=== PATIENT | female | born 1940 | race American Indian/Alaskan Native ===

== ENCOUNTER 2017-02-22 07:45 | Day surgery (SDC) | payer MEDICARE ==
[2017-02-14 08:17] VITALS: BMI 24.3
[~2017-02-22 07:45] MED LIST: ceFAZolin IV 1 gm in Dextrose 1 GM/50 ML BAG IVPB ONE
[2017-02-22] MEDS ORDERED: HEPARIN-NS 5,000 UNITS/500 ML 5,000 UNIT/500 ML BAG IV ONE (07:48)
[2017-02-22] MEDS ORDERED: Midazolam 2 MG/2 ML VIAL ONE (08:20)
[2017-02-22] MEDS ORDERED: Lidocaine Hydrochloride 5 ML INJ ONE (08:20)
[2017-02-22] MEDS ORDERED: Propofol 10 mg/ml Inj (20 ML) ONE (08:20)
[2017-02-22] MEDS ORDERED: Sodium Chloride 0.9% 500 ML IV ONE (10:40)
--- NOTE | 2017-02-22 15:05 | OP ---
PROCEDURE DATE: 02/22/2017 PREOPERATIVE DIAGNOSIS: Renal failure. POSTOPERATIVE DIAGNOSIS: Renal failure. PROCEDURE CARRIED OUT: Brachiobrachial fistula, left elbow. SURGEON: Nando Quach Jr., MD CYBER FORENSICS ANALYST: Dr. Fountain. ANESTHESIOLOGIST: Mr. Lara; general anesthesia. INDICATIONS: The patient is an older middle-aged woman with renal insufficiency, not yet on dialysis . Preoperative vein mapping did not demonstrate an adequate cephalic vein or really any significant cephalic vein and the basilic vein was relatively small, although in the upper portion of the arm it achieved a decent size. Because of this, we carried out a brachiobrachial fistula at the elbow. The re was excellent flow through the fistula and there was a palpable pulse at the wrist. PROCEDURE: The patient was given general anesthesia and intravenous antibiotics. The vein mapping wa s checked again and then we carried out an incision just above the elbow. We isolated the vein and t he artery and did anastomosis in an end-to-side fashion using loupe magnification and heparin anticoa gulation which was not reversed at the end of the procedure. After completion of the anastomosis, I had thorough checks for hemostasis. We closed this wound with a subcuticular closure and Steri-Strip s. Blood loss was less than 15 mL. OPERATION CARRIED OUT: Brachiobrachial fistula, left elbow. Most likely this will require mobilization in the future. Nando Quach Jr., MD cc:Melina Cobb MD 56 TT: 02/22/2017 10:56:22 darci
[2017-02-22 19:38] VITALS: O2SAT 99
[2017-02-22 19:39] VITALS: BP 135/55; PULSE 52; RESP 15; TEMP 97.6
[2017-02-22 21:25] LABS: CALCIUM 7.7 mg/dl (8.6-10.4); POTASSIUM 4.9 mmol/L (3.6-5.2)
== END 2017-02-22 13:35 | disposition home or self-care (01) ==
LOC: C.SDS 07:45
PROVIDERS: ATTEND Surgery Vascular Surgery
DX: I12.0 Hypertensive chronic kidney disease with stage 5 chronic kidney disease or end stage renal disease (principal); N18.6 End stage renal disease; E11.22 Type 2 diabetes mellitus with diabetic chronic kidney disease
CPT/HCPCS: 36415; 36821; 80048; J2250; J2704; J3010; J7040

== ENCOUNTER 2017-04-19 06:50 | Day surgery (SDC) | payer MEDICARE ==
[2017-02-14 08:15] VITALS: BMI 24.3
[2017-04-19] MEDS: ceFAZolin IV 1 gm in Dextrose 1 GM/50 ML BAG IVPB ONE ×2 (07:50→08:10)
[2017-04-19] MEDS ORDERED: Propofol 10 mg/ml Inj (20 ML) ONE (07:51)
[2017-04-19] MEDS ORDERED: Midazolam 2 MG/2 ML VIAL ONE (07:51)
[2017-04-19] MEDS: HEPARIN-NS 5,000 UNITS/500 ML 5,000 UNIT/500 ML BAG IV ONE ×2 (08:30→10:05)
[2017-04-19] MEDS ORDERED: HYDROmorphone 0.5 mg/0.5 ml ISec IVP PRN (10:36)
[2017-04-19] MEDS ORDERED: Rocuronium 10 mg/ml (5 ml) ONE (10:38)
[2017-04-19] MEDS ORDERED: Sodium Chloride 0.9% 1,000 ML IV SCH (10:45)
[2017-04-19] MEDS ORDERED: Oxycodone/Acetaminophen 5/325 mg Tab PO PRN (10:55)
--- NOTE | 2017-04-19 10:57 | PCM.SURG1 ---
Surgeon's Initial Post Op Note - Surgeon's Notes Surgeon: Dr. Quach Family Practitioner: Dr. Amin PGY3 Type of Anesthesia: General Endo Pre-Operative Diagnosis: ESRD, Left arm AVF Operative Findings: see op report Post-Operative Diagnosis: same Operation Performed: left arm AVF revision/superficialization Specimen/Specimens Removed: none Estimated Blood Loss: EBL {In ML}: 25 Blood Products Given: N/A Drains Used: No Drains Post-Op Condition: Good Date of Surgery/Procedure: 04/19/17 Time of Surgery/Procedure: 10:57
[2017-04-19] MEDS ORDERED: Sodium Chloride 0.9% 500 ML IV ONE (11:55)
[2017-04-19 12:28] VITALS: RESP 18
[2017-04-19 15:28] VITALS: BP 142/52; PULSE 68; TEMP 98; O2SAT 98
--- NOTE | 2017-05-04 22:00 | OP ---
PROCEDURE DATE: 04/19/2017 PREOPERATIVE DIAGNOSIS: Immature fistula, left arm. POSTOPERATIVE DIAGNOSIS: Immature fistula, left arm. PROCEDURE CARRIED OUT: Revision of AV fistula, left arm with basilic vein elevation. SURGEON: Dr. Nando Quach Jr., MD BOARD FILLER: None. ANESTHESIA ADMINISTERED BY: Staff anesthesiologist. INDICATION FOR SURGERY: The patient is a middle-aged woman with renal insufficiency, who has a AV fistula left arm which was created, a basilic vein fistula. This is too deep to be utilized, requires mobilization of the surface. DESCRIPTION OF PROCEDURE: The vein was dissected briefly from the surrounding tissues, it was marked on the skin with ultrasound. An incision was made from the elbow to the axilla and the fistula was mobilized completely. After this has been mobilized, the branches were ligated and divided and eventually, the subcutaneous tissues were closed and the fistula was brought directly beneath the skin. There was excellent flow to the fistula. There was excellent closure of the skin wound. The patient tolerated the procedure well. Blood loss for the procedure was less than 100 mL. The operation carried out was revision of AV fistula, left arm with basilic vein transposition. Nando Quach Jr., MD cc: Melina Cobb MD
== END 2017-04-19 15:15 | disposition home or self-care (01) ==
LOC: C.SDS 06:50
PROVIDERS: ATTEND Surgery Vascular Surgery
DX: T82.898A Other specified complication of vascular prosthetic devices, implants and grafts, initial encounter (principal); N18.6 End stage renal disease
CPT/HCPCS: 36415; 36832; 82948; 84132; J0690; J1644; J2250; J2704; J3010; J7040

== ENCOUNTER 2017-05-18 14:14 | Emergency (ER) | payer MEDICARE ==
[2017-05-18 14:14] VITALS: BMI 24.3
[2017-05-18 14:32] VITALS: TEMP 98.6
[2017-05-18 15:35] VITALS: BP 170/70; PULSE 88; RESP 18; O2SAT 98
--- NOTE | 2017-05-18 18:20 | C.PDOC ---
History Of Present Illness 76 y/o female presents to ED for blood work. Patient carol munguia a mistake on her blood work appointment which is scheduled for Sunday not today. No physical complaints at this time. Time Seen by Provider: 05/18/17 15:12 Chief Complaint (Nursing): Medical Clearance History/Exam Limitations: no limitations Onset/Duration Of Symptoms: Days Current Symptoms Are (Timing): Still Present Past Medical History Reviewed: Historical Data, Nursing Documentation, Vital Signs Vital Signs: Last Vital Signs Temp 98.6 F 05/18/17 15:34 Pulse 88 05/18/17 15:34 Resp 18 05/18/17 15:34 BP 170/70 H 05/18/17 15:34 Pulse Ox 98 05/18/17 18:24 - Medical History PMH: Anemia, Diabetes, HTN, Hypercholesterolemia, Peripheral Edema (FEET), Chronic Kidney Disease, TIA (MAYBE 1999) - [employer] Procedures ANGIOPLASTY OF OTHER NON-CORONARY VESSEL(S) (12/21/14) ATHERECTOMY OF OTHER NON-CORONARY VESSEL(S) (12/21/14) INSEJ [id number] PERIPHERAL NON-CORONARY VES STENT(S) (12/21/14) INSERTION OF ONE VASCULAR STENT (12/21/14) PROCEDURE ON SINGLE VESSEL (12/21/14) PROCEDURE ON VESSEL BIFURCATION (12/21/14) Family History: States: Unknown Family Hx - Social History Hx Tobacco Use: No Hx Alcohol Use: No Hx Substance Use: No - Immunization History Hx Tetanus Toxoid Vaccination: Yes Hx Influenza Vaccination: Yes Hx Pneumococcal Vaccination: Yes Review Of Systems Except As Marked, All Systems Reviewed And Found Negative. Constitutional: Negative for: Fever, Chills Cardiovascular: Negative for: Chest Pain Respiratory: Negative for: Cough, Shortness of Breath Gastrointestinal: Negative for: Nausea, Vomiting, Diarrhea Skin: Negative for: Rash Neurological: Negative for: Weakness, Headache, Dizziness Physical Exam - Physical Exam Appears: Non-toxic, No Acute Distress Skin: Normal Color, Warm, No Rash Head: Atraumatic, Normacephalic Eye(s): bilateral: Normal Inspection Oral Mucosa: Moist Neck: Supple Chest: Symmetrical Cardiovascular: Rhythm Regular Respiratory: Normal Breath Sounds, No Rales, No Rhonchi, No Wheezing Gastrointestinal/Abdominal: Soft, No Tenderness, No Guarding, No Rebound Extremity: Normal ROM, Capillary Refill (<2 seconds) Neurological/Psych: Oriented x3, Normal Speech, Normal Cognition ED Course And Treatment O2 Sat by Pulse Oximetry: 98 (RA) Pulse Ox Interpretation: Normal Medical Decision Making Medical Decision Making: Case discussed with Dr. Oral Cobb and advised to tell patient to follow up with hospital on Sunday. Disposition - Disposition Referrals: Adele Cobb MD [Staff Provider] - Disposition: HOME/ ROUTINE Disposition Time: 15:20 Condition: GOOD Additional Instructions: Thank you for letting us take care of you today. Your provider was Dr. Carlson. The emergency medical care you received today was directed at your acute symptoms. If you were prescribed any medication, please fill it and take as directed. It may take several days for your symptoms to resolve. Return to the Emergency Department if your symptoms worsen, do not improve, or if you have any other problems. Please contact your doctor or call one of the physicians/clinics you have been referred to that are listed on the Patient Visit Information form that is included in your discharge packet. Bring any paperwork you were given at discharge with you along with any medications you are taking to your follow up visit. Our treatment cannot replace ongoing medical care by a primary care provider (PCP) outside of the emergency department. Thank you for allowing the [facility] team to be part of your care today. Follow up on Sunday as scheduled. Forms: [employer] (Greek) - Clinical Impression Clinical Impression: Medical assessment - Scribe Statement The provider has reviewed the documentation as recorded by the Seibezra Santos All medical record entries made by the Scribe were at my direction and personally dictated by me. I have reviewed the chart and agree that the record accurately reflects my personal performance of the history, physical exam, medical decision making, and the department course for this patient. I have also personally directed, reviewed, and agree with the discharge instructions and disposition.
== END 2017-05-18 16:00 | disposition home or self-care (01) ==
LOC: C.ER 14:14
DX: Z00.00 Encounter for general adult medical examination without abnormal findings (principal)

== ENCOUNTER 2017-06-05 11:08 | Inpatient (IN) | payer MEDICARE ==
[2017-06-05 11:09] VITALS: BMI 24.3
--- NOTE | 2017-06-05 12:02 | C.PDOC ---
History Of Present Illness 76 y/o female, with PMHx of diabetes, HTN, chronic kidney disease, is sent to ED by Dr. Pascual Cobb for first time dialysis treatment. Otherwise, pt denies any pain, or any other associated symptoms at this time. Denies taking her chronic meds this morning. No complaints at this time. Time Seen by Provider: 06/05/17 11:16 Chief Complaint (Nursing): Medical Clearance History Per: Patient History/Exam Limitations: no limitations Onset/Duration Of Symptoms: Gradual Current Symptoms Are (Timing): Still Present Severity: None Pain Scale Rating Of: 0 Reports Recently: Treated By A Physician Recent travel outside of the [place]: No Additional History Per: Patient Past Medical History Reviewed: Historical Data, Nursing Documentation, Vital Signs Vital Signs: Last Vital Signs Temp 98.2 F 06/05/17 11:20 Pulse 86 06/05/17 11:20 Resp 18 06/05/17 11:20 BP 183/75 H 06/05/17 11:20 Pulse Ox 100 06/05/17 12:41 - Medical History PMH: Anemia, Diabetes, HTN, Hypercholesterolemia, Peripheral Edema (FEET), Chronic Kidney Disease, TIA (MAYBE 1999) - [employer] Procedures ANGIOPLASTY OF OTHER NON-CORONARY VESSEL(S) (12/21/14) ATHERECTOMY OF OTHER NON-CORONARY VESSEL(S) (12/21/14) INSEJ [id number] PERIPHERAL NON-CORONARY VES STENT(S) (12/21/14) INSERTION OF ONE VASCULAR STENT (12/21/14) PROCEDURE ON SINGLE VESSEL (12/21/14) PROCEDURE ON VESSEL BIFURCATION (12/21/14) Family History: States: Unknown Family Hx - Social History Hx Tobacco Use: No Hx Alcohol Use: No Hx Substance Use: No - Immunization History Hx Tetanus Toxoid Vaccination: Yes Hx Influenza Vaccination: Yes Hx Pneumococcal Vaccination: Yes Review Of Systems Constitutional: Negative for: Fever, Chills Cardiovascular: Negative for: Chest Pain, Palpitations Respiratory: Negative for: Shortness of Breath Gastrointestinal: Negative for: Nausea, Vomiting, Abdominal Pain Musculoskeletal: Negative for: Arm Pain, Back Pain Skin: Negative for: Rash, Bruising Physical Exam - Physical Exam Appears: Non-toxic, No Acute Distress Skin: Normal Color, Warm, Dry, Other ((+) fistula thrill to left upper arm) Head: Atraumatic, Normacephalic Eye(s): bilateral: Other (pale conjunctiva) Oral Mucosa: Moist Cardiovascular: Rhythm Regular, No Murmur Respiratory: Normal Breath Sounds, No Rales, No Rhonchi, No Wheezing Gastrointestinal/Abdominal: Soft, No Tenderness Extremity: Bilateral: Atraumatic, Normal ROM Neurological/Psych: Oriented x3, Normal Speech, Normal Cognition ED Course And Treatment - Laboratory Results Result Diagrams: 06/05/17 12:11 06/05/17 12:11 ECG: Interpreted By Me, Viewed By Me ECG Rhythm: Sinus Rhythm ECG Interpretation: No Acute Changes Interpretation Of ECG: Minimal voltage criteria for LVH. Prolonged QT. Rate From EC (bpm) O2 Sat by Pulse Oximetry: 100 (on RA) Pulse Ox Interpretation: Normal Medical Decision Making Medical Decision Making: Plan: Blood work, UA, EKG, CXR On re-evaluation, pt is resting comfortably, no physical complaints at this time. No acute distress. 1246 pm pt with k of 5.7, no acute ekf changes; per Dr Cobb, will give kayexalate and pt to be dialyzed later. Dr Quach called. Disposition Discussed With Dr.: Adele Cobb Doctor Will See Patient In The: Hospital - Disposition Disposition Time: 12:48 Condition: SERIOUS Forms: [facility] (Albanian) - Clinical Impression Clinical Impression: Renal failure, Hyperkalemia, diminished renal excretion - PA / CASER IN / Resident Statement MD/DO has reviewed & agrees with the documentation as recorded. - Scribe Statement The provider has reviewed the documentation as recorded by the Scribezra Cobb All medical record entries made by the Scribe were at my direction and personally dictated by me. I have reviewed the chart and agree that the record accurately reflects my personal performance of the history, physical exam, medical decision making, and the department course for this patient. I have also personally directed, reviewed, and agree with the discharge instructions and disposition. Decision To Admit - Pt Status Changed To: Hospital Disposition Of: Inpatient - Admit Certification Admit to Inpatient:: After my assessment, the patient will require hospitalization for at least two midnights. This is because of the severity of symptoms shown, intensity of services needed, and/or the medical risk in this patient being treated as an outpatient. - InPatient: Physician Admission Certification: I certify that this patient requires 2 or more midnights of care for the following reason:: for dialysis, eletrolyte abnl - . Bed Request Type: Telemetry Admitting Physician: Adele Cobb Patient Diagnosis: Renal failure, Hyperkalemia, diminished renal excretion
[2017-06-05 12:20] LABS: BASO % 0.8 % (0.0-2.0); EOS # 0.1 K/uL (0.0-0.7); EOS % 2.3 % (0.0-4.0); HEMATOCRIT 25.7 % (34.0-47.0); LYMPH # 1.1 K/uL (1.0-4.3); MEAN CELL VOLUME 79.8 fL (81.0-99.0); MEAN CORPUSCULAR HEMOGLOBIN 26.2 pg (27.0-31.0); MEAN CORPUSCULAR HGB CONC 32.8 g/dL (33.0-37.0); MEAN PLATELET VOLUME 7.8 fL (7.2-11.7); MONO # 0.5 K/uL (0.0-0.8); MONO % 7.7 % (0.0-10.0); RED CELL DISTRIBUTION WIDTH 14.8 % (11.5-14.5); WHITE BLOOD COUNT 6.3 K/uL (4.8-10.8)
[2017-06-05 12:29] LABS: POTASSIUM 5.7 mmol/L (3.6-5.2)
[2017-06-05 12:31] LABS: BILIRUBIN,TOTAL 0.4 mg/dL (0.2-1.3)
[2017-06-05 12:32] LABS: ALB/GLOB RATIO 0.9 (1.0-2.1); CALCIUM 7.7 mg/dl (8.6-10.4); TOTAL PROTEIN 6.8 g/dL (6.3-8.3)
[2017-06-05 12:42] LABS: RBC URINE 7 /hpf (0-3); URINE BACTERIA OCC (<OCC); URINE BILIRUBIN NEGATIVE (NEGATIVE); URINE BLOOD 1+ (NEGATIVE); URINE COLOR Yellow (YELLOW); URINE GLUCOSE (UA) 1+ mg/dL (Normal); URINE KETONE NEGATIVE (NEGATIVE); URINE LEUKOCYTE ESTERASE 1+ Leu/uL (Negative); URINE PROTEIN 3+ mg/dL (NEGATIVE); URINE UROBILINOGEN NORMAL mg/dL (0.2-1.0); WBC URINE 9 /hpf (0-5)
[2017-06-05] MEDS ORDERED: Sod Polystyrene Sulf 15 gm/60 ml Oral Susp PO ONE (12:44)
--- NOTE | 2017-06-05 12:50 | RAD ---
HISTORY: SOB COMPARISON: Chest x-ray performed 02/14/17. TECHNIQUE: Chest, one view. FINDINGS: LUNGS: No focal consolidation. Please note that chest x-ray has limited sensitivity for the detection of pulmonary masses. PLEURA: No significant pleural effusion identified. No definite pneumothorax . CARDIOVASCULAR: Mild cardiomegaly. Atherosclerotic calcifications of the aorta. OSSEOUS STRUCTURES: Degenerative changes of the spine. VISUALIZED UPPER ABDOMEN: Unremarkable. OTHER FINDINGS: None. IMPRESSION: No focal consolidation, significant pleural effusion, or definite pneumothorax identified.
[2017-06-05] MEDS ORDERED: Sod Polystyrene Sulf 15 gm/60 ml Oral Susp ONE (13:10)
--- NOTE | 2017-06-05 16:03 | CP.PCM.HP ---
Past Patient History - Infectious Disease Hx of Infectious Diseases: None - Tetanus Immunizations Tetanus Immunization: Unknown - Past Medical History & Family History Past Medical History?: Yes - Past Social History Smoking Status: Former Smoker - CARDIAC Hx Hypercholesterolemia: Yes Hx Hypertension: Yes Hx Peripheral Edema: Yes (FEET) - PULMONARY Hx Respiratory Disorders: No - NEUROLOGICAL Hx Transient Ischemic Attacks (TIA): Yes (MAYBE 1999) - HEENT Hx HEENT Problems: Yes Hx Cataracts: Yes - RENAL Hx Chronic Kidney Disease: Yes - ENDOCRINE/METABOLIC Hx Endocrine Disorders: Yes Hx Diabetes Mellitus Type 2: Yes - HEMATOLOGICAL/ONCOLOGICAL Hx Anemia: Yes - INTEGUMENTARY Hx Dermatological Problems: No - MUSCULOSKELETAL/RHEUMATOLOGICAL Hx Musculoskeletal Disorders: No Hx Falls: No - GASTROINTESTINAL Hx Gastrointestinal Disorders: No - GENITOURINARY/GYNECOLOGICAL Hx Genitourinary Disorders: No Hx Urinary Tract Infection: Yes - PSYCHIATRIC Hx Substance Use: No - SURGICAL HISTORY Hx Surgeries: Yes Hx Angiogram: Yes Hx Angioplasty: Yes (LEFT LEG STENTING) Hx Cataract Extraction: Yes (Both Eyes) Hx Dilation and Curettage: Yes Hx Herniorrhaphy: Yes (Hernia Surgery) Hx Orthopedic Surgery: Yes (sx of dislocated right shoulder) Hx Tubal Ligation: Yes Hx Vascular Surgery: Yes (left leg stent 12/22/14) Other/Comment: AV Fistula, left arm - ANESTHESIA Hx Anesthesia: Yes Hx Anesthesia Reactions: No Hx Malignant Hyperthermia: No Meds Allergies/Adverse Reactions: Allergies Allergy/AdvReac Type Severity Reaction Status Date / Time No Known Allergies Allergy Verified 06/05/17 11:24 Physical Exam - Constitutional Appears: Well - Head Exam Head Exam: ATRAUMATIC, NORMAL INSPECTION, NORMOCEPHALIC - Eye Exam Eye Exam: EOMI, Normal appearance, PERRL Pupil Exam: NORMAL ACCOMODATION, PERRL - ENT Exam ENT Exam: Mucous Membranes Moist, Normal Exam - Neck Exam Neck exam: Positive for: Normal Inspection - Respiratory Exam Respiratory Exam: Decreased Breath Sounds - Cardiovascular Exam Cardiovascular Exam: REGULAR RHYTHM, +S1, +S2 - GI/Abdominal Exam GI & Abdominal Exam: Diminished Bowel Sounds, Soft - Rectal Exam Rectal Exam: Deferred Results - Vital Signs Recent Vital Signs: Last Vital Signs Temp 98.0 F 06/05/17 14:50 Pulse 72 06/05/17 14:50 Resp 18 06/05/17 14:50 BP 139/70 06/05/17 14:50 Pulse Ox 100 06/05/17 14:50 - Labs Result Diagrams: 06/05/17 12:11 06/05/17 12:11
[2017-06-05] MEDS: (Novolog) Insulin Aspart, Recombinant 100 u/ml 10 ml vial SC SCH ×2 (17:35→21:43)
[2017-06-06] MEDS: (Novolog) Insulin Aspart, Recombinant 100 u/ml 10 ml vial SC SCH ×4 (07:46→21:52)
[2017-06-06] MEDS: Pantoprazole 40 mg EC Tab PO PRN (13:02)
--- NOTE | 2017-06-06 18:14 | CP.PCM.PN ---
Subjective - Date & Time of Evaluation Date of Evaluation: 06/06/17 Time of Evaluation: 10:00 - Subjective Subjective: clinically same Objective - Vital Signs/Intake and Output Vital Signs (last 24 hours): Temp Pulse Resp BP Pulse Ox 98.8 F 85 20 160/60 H 100 06/06/17 15:00 06/06/17 15:00 06/06/17 15:00 06/06/17 15:00 06/06/17 15:00 Intake and Output: 06/06/17 06/06/17 06:59 18:59 Intake Total 840 Balance 840 - Medications Medications: Current Medications Amlodipine Besylate (Norvasc) 10 mg PO DAILY [facility] Last Admin: 06/06/17 13:02 Dose: 10 mg Aspirin (Ecotrin) 81 mg PO DAILY [facility] Last Admin: 06/06/17 13:02 Dose: 81 mg Carvedilol (Coreg) 6.25 mg PO BID [facility] Last Admin: 06/06/17 17:18 Dose: 6.25 mg Clopidogrel Bisulfate (Plavix) 75 mg PO DAILY [facility] Last Admin: 06/06/17 13:02 Dose: 75 mg Heparin Sodium (Porcine) (Heparin) 5,000 units SC Q12 [facility] Last Admin: 06/06/17 10:30 Dose: Not Given Insulin Aspart (Novolog) 0 unit SC ACHS [facility] PRN Reason: Protocol Stop: 06/11/17 23:59 Last Admin: 06/06/17 17:16 Dose: 8 unit Losartan Potassium (Cozaar) 50 mg PO DAILY [facility] Last Admin: 06/06/17 13:01 Dose: 50 mg Pantoprazole Sodium (Protonix Ec Tab) 40 mg PO DAILY PRN PRN Reason: Dyspepsia Last Admin: 06/06/17 13:02 Dose: 40 mg Pentoxifylline (Pentoxil) 400 mg PO BID [facility] Last Admin: 06/06/17 17:17 Dose: 400 mg Rosuvastatin Calcium (Crestor) 10 mg PO HS [facility] Last Admin: 06/05/17 21:44 Dose: 10 mg - Constitutional Appears: Well - Head Exam Head Exam: ATRAUMATIC, NORMAL INSPECTION, NORMOCEPHALIC - Eye Exam Eye Exam: EOMI, Normal appearance, PERRL Pupil Exam: NORMAL ACCOMODATION, PERRL - ENT Exam ENT Exam: Mucous Membranes Moist, Normal Exam - Neck Exam Neck Exam: Full ROM, Normal Inspection. absent: Lymphadenopathy - Respiratory Exam Respiratory Exam: Decreased Breath Sounds - Cardiovascular Exam Cardiovascular Exam: REGULAR RHYTHM, +S1, +S2 - GI/Abdominal Exam GI & Abdominal Exam: Soft, Diminished Bowel Sounds - Rectal Exam Rectal Exam: Deferred
--- NOTE | 2017-06-06 20:27 | CARD ---
APPROVED REPORT EKG Measurement Heart [id number] ID [id number] <Conclusion> Normal sinus rhythm Minimal voltage criteria for LVH, may be normal variant Prolonged QT Abnormal ECG
[2017-06-07] MEDS: (Novolog) Insulin Aspart, Recombinant 100 u/ml 10 ml vial SC SCH ×4 (07:33→21:24)
[2017-06-07 10:31] LABS: BASO # 0.1 K/uL (0.0-0.2); EOS # 0.1 K/uL (0.0-0.7); EOS % 1.5 % (0.0-4.0); HEMATOCRIT 25.3 % (34.0-47.0); LYMPH # 0.9 K/uL (1.0-4.3); LYMPH % 16.9 % (20.0-40.0); MEAN CORPUSCULAR HEMOGLOBIN 26.4 pg (27.0-31.0); MEAN PLATELET VOLUME 7.8 fL (7.2-11.7); MONO # 0.5 K/uL (0.0-0.8); MONO % 8.5 % (0.0-10.0); RED CELL DISTRIBUTION WIDTH 14.3 % (11.5-14.5); WHITE BLOOD COUNT 5.4 K/uL (4.8-10.8)
[2017-06-07 10:39] LABS: POTASSIUM 3.9 mmol/L (3.6-5.2)
--- NOTE | 2017-06-07 16:55 | CP.PCM.PN ---
Objective - Vital Signs/Intake and Output Vital Signs (last 24 hours): Temp Pulse Resp BP Pulse Ox 97.9 F 77 20 153/61 H 100 06/07/17 16:16 06/07/17 16:16 06/07/17 16:16 06/07/17 16:16 06/07/17 16:16 Intake and Output: 06/07/17 06/07/17 06:59 18:59 Intake Total 400 Balance 400 - Medications Medications: Current Medications Amlodipine Besylate (Norvasc) 10 mg PO DAILY [facility] Last Admin: 06/07/17 14:04 Dose: 10 mg Aspirin (Ecotrin) 81 mg PO DAILY [facility] Last Admin: 06/07/17 14:05 Dose: 81 mg Carvedilol (Coreg) 6.25 mg PO BID [facility] Last Admin: 06/07/17 10:30 Dose: Not Given Clopidogrel Bisulfate (Plavix) 75 mg PO DAILY [facility] Last Admin: 06/07/17 14:05 Dose: 75 mg Heparin Sodium (Porcine) (Heparin) 5,000 units SC Q12 [facility] Last Admin: 06/07/17 10:30 Dose: Not Given Insulin Aspart (Novolog) 0 unit SC ACHS [facility] PRN Reason: Protocol Stop: 06/11/17 23:59 Last Admin: 06/07/17 14:04 Dose: 3 unit Losartan Potassium (Cozaar) 50 mg PO DAILY [facility] Last Admin: 06/07/17 14:05 Dose: 50 mg Pantoprazole Sodium (Protonix Ec Tab) 40 mg PO DAILY PRN PRN Reason: Dyspepsia Last Admin: 06/06/17 13:02 Dose: 40 mg Pentoxifylline (Pentoxil) 400 mg PO BID [facility] Last Admin: 06/07/17 10:30 Dose: Not Given Rosuvastatin Calcium (Crestor) 10 mg PO HS [facility] Last Admin: 06/06/17 21:36 Dose: 10 mg - Labs Labs: 06/07/17 10:22 06/07/17 10:22
--- NOTE | 2017-06-07 16:56 | CP.PCM.PN ---
Subjective - Date & Time of Evaluation Date of Evaluation: 06/07/17 Time of Evaluation: 09:20 - Subjective Subjective: clinically same Objective - Vital Signs/Intake and Output Vital Signs (last 24 hours): Temp Pulse Resp BP Pulse Ox 97.9 F 77 20 153/61 H 100 06/07/17 16:16 06/07/17 16:16 06/07/17 16:16 06/07/17 16:16 06/07/17 16:16 Intake and Output: 06/07/17 06/07/17 06:59 18:59 Intake Total 400 Balance 400 - Medications Medications: Current Medications Amlodipine Besylate (Norvasc) 10 mg PO DAILY [facility] Last Admin: 06/07/17 14:04 Dose: 10 mg Aspirin (Ecotrin) 81 mg PO DAILY [facility] Last Admin: 06/07/17 14:05 Dose: 81 mg Carvedilol (Coreg) 6.25 mg PO BID [facility] Last Admin: 06/07/17 10:30 Dose: Not Given Clopidogrel Bisulfate (Plavix) 75 mg PO DAILY [facility] Last Admin: 06/07/17 14:05 Dose: 75 mg Heparin Sodium (Porcine) (Heparin) 5,000 units SC Q12 [facility] Last Admin: 06/07/17 10:30 Dose: Not Given Insulin Aspart (Novolog) 0 unit SC ACHS [facility] PRN Reason: Protocol Stop: 06/11/17 23:59 Last Admin: 06/07/17 14:04 Dose: 3 unit Losartan Potassium (Cozaar) 50 mg PO DAILY [facility] Last Admin: 06/07/17 14:05 Dose: 50 mg Pantoprazole Sodium (Protonix Ec Tab) 40 mg PO DAILY PRN PRN Reason: Dyspepsia Last Admin: 06/06/17 13:02 Dose: 40 mg Pentoxifylline (Pentoxil) 400 mg PO BID [facility] Last Admin: 06/07/17 10:30 Dose: Not Given Rosuvastatin Calcium (Crestor) 10 mg PO HS [facility] Last Admin: 06/06/17 21:36 Dose: 10 mg - Labs Labs: 06/07/17 10:22 06/07/17 10:22 - Constitutional Appears: Well - Head Exam Head Exam: ATRAUMATIC, NORMAL INSPECTION, NORMOCEPHALIC - Eye Exam Eye Exam: EOMI, Normal appearance, PERRL Pupil Exam: NORMAL ACCOMODATION, PERRL - ENT Exam ENT Exam: Mucous Membranes Moist, Normal Exam - Neck Exam Neck Exam: Full ROM, Normal Inspection. absent: Lymphadenopathy - Respiratory Exam Respiratory Exam: Decreased Breath Sounds
--- NOTE | 2017-06-07 17:07 | CP.PCM.PN ---
Subjective - Date & Time of Evaluation Date of Evaluation: 06/07/17 Time of Evaluation: 17:00 - Subjective Subjective: Service for Dr. Pascual Cobb Pt seen and examined at bedside. No acute distress. No events overnight. Pt is feeling fine with no complaints. S/P dialysis today. Awaiting chair placement. No fevers, chills, vomiting, diarrhea, cp, sob. Objective - Vital Signs/Intake and Output Vital Signs (last 24 hours): Temp Pulse Resp BP Pulse Ox 97.9 F 77 20 153/61 H 100 06/07/17 16:16 06/07/17 16:16 06/07/17 16:16 06/07/17 16:16 06/07/17 16:16 Intake and Output: 06/07/17 06/07/17 06:59 18:59 Intake Total 400 Balance 400 - Medications Medications: Current Medications Amlodipine Besylate (Norvasc) 10 mg PO DAILY [facility] Last Admin: 06/07/17 14:04 Dose: 10 mg Aspirin (Ecotrin) 81 mg PO DAILY [facility] Last Admin: 06/07/17 14:05 Dose: 81 mg Carvedilol (Coreg) 6.25 mg PO BID [facility] Last Admin: 06/07/17 10:30 Dose: Not Given Clopidogrel Bisulfate (Plavix) 75 mg PO DAILY [facility] Last Admin: 06/07/17 14:05 Dose: 75 mg Heparin Sodium (Porcine) (Heparin) 5,000 units SC Q12 [facility] Last Admin: 06/07/17 10:30 Dose: Not Given Insulin Aspart (Novolog) 0 unit SC ACHS [facility] PRN Reason: Protocol Stop: 06/11/17 23:59 Last Admin: 06/07/17 14:04 Dose: 3 unit Losartan Potassium (Cozaar) 50 mg PO DAILY [facility] Last Admin: 06/07/17 14:05 Dose: 50 mg Pantoprazole Sodium (Protonix Ec Tab) 40 mg PO DAILY PRN PRN Reason: Dyspepsia Last Admin: 06/06/17 13:02 Dose: 40 mg Pentoxifylline (Pentoxil) 400 mg PO BID [facility] Last Admin: 06/07/17 10:30 Dose: Not Given Rosuvastatin Calcium (Crestor) 10 mg PO HS [facility] Last Admin: 06/06/17 21:36 Dose: 10 mg - Labs Labs: 06/07/17 10:22 06/07/17 10:22 - Constitutional Appears: Non-toxic, No Acute Distress - Head Exam Head Exam: ATRAUMATIC, NORMAL INSPECTION, NORMOCEPHALIC - Eye Exam Eye Exam: EOMI - ENT Exam ENT Exam: Mucous Membranes Moist - Neck Exam Neck Exam: Full ROM, Normal Inspection - Respiratory Exam Respiratory Exam: NORMAL BREATHING PATTERN. absent: Respiratory Distress - Cardiovascular Exam Cardiovascular Exam: REGULAR RHYTHM, +S1, +S2 - GI/Abdominal Exam GI & Abdominal Exam: Soft, Normal Bowel Sounds. absent: Tenderness - Extremities Exam Extremities Exam: Full ROM - Back Exam Back Exam: NORMAL INSPECTION - Neurological Exam Neurological Exam: Alert, Awake, Oriented x3 - Psychiatric Exam Psychiatric exam: Normal Affect, Normal Mood - Skin Skin Exam: Dry, Intact, Normal Color, Warm Assessment and Plan - Assessment and Plan (Free Text) Assessment: This is a 76 yo female with past medical hx ESRD, CKD requiring dialysis, DM, HTN presenting in acute on chronic renal failure 1. CKD/ESRD -norvasc 10 -dialysis as scheduled -awaiting chair placement -pentoxil 400 bid 2. HTN -asa 81 daily -plavix 75 daily -crestor 10 daily -losartan 50 daily -coreg bid 3. hx of DM -ISS -accuchecks 4. GI/DVT ppx -heparin 5000 q 12 sc -protonix daily dw Dr. Cobb.
[2017-06-08] MEDS: (Novolog) Insulin Aspart, Recombinant 100 u/ml 10 ml vial SC SCH ×4 (07:58→22:11)
--- NOTE | 2017-06-08 09:58 | CP.PCM.PN ---
Subjective - Date & Time of Evaluation Date of Evaluation: 06/08/17 Time of Evaluation: 07:25 - Subjective Subjective: PGY2 Resident - Medicine Progress Note Patient seen and examined at bedside. No overnight events per nursing. Patient reports feeling well and has no acute complaints. Dialysis scheduled for tomorrow (Sunday). Awaiting placement for outpatient dialysis. Denies fever, chills, headache, changes in vision, chest pain, palpitations, dyspnea, cough, abdominal pain, nausea/vomiting, diarrhea/constipation, dysuria, urinary frequency, change in urinary stream, or any additional acute complaints. Objective - Vital Signs/Intake and Output Vital Signs (last 24 hours): Temp Pulse Resp BP Pulse Ox 98.3 F 85 20 164/85 H 99 06/08/17 07:15 06/08/17 07:59 06/08/17 07:15 06/08/17 07:15 06/08/17 07:15 Intake and Output: 06/08/17 06/08/17 06:59 18:59 Intake Total 500 Balance 500 - Medications Medications: Current Medications Amlodipine Besylate (Norvasc) 10 mg PO DAILY [facility] Last Admin: 06/08/17 09:27 Dose: 10 mg Aspirin (Ecotrin) 81 mg PO DAILY [facility] Last Admin: 06/08/17 09:27 Dose: 81 mg Carvedilol (Coreg) 6.25 mg PO BID [facility] Last Admin: 06/08/17 09:27 Dose: 6.25 mg Clopidogrel Bisulfate (Plavix) 75 mg PO DAILY [facility] Last Admin: 06/08/17 09:27 Dose: 75 mg Heparin Sodium (Porcine) (Heparin) 5,000 units SC Q12 [facility] Last Admin: 06/08/17 09:34 Dose: Not Given Insulin Aspart (Novolog) 0 unit SC ACHS [facility] PRN Reason: Protocol Stop: 06/11/17 23:59 Last Admin: 06/08/17 07:58 Dose: Not Given Losartan Potassium (Cozaar) 50 mg PO DAILY [facility] Last Admin: 06/08/17 09:34 Dose: Not Given Pantoprazole Sodium (Protonix Ec Tab) 40 mg PO DAILY PRN PRN Reason: Dyspepsia Last Admin: 06/06/17 13:02 Dose: 40 mg Pentoxifylline (Pentoxil) 400 mg PO BID [facility] Last Admin: 06/08/17 09:28 Dose: 400 mg Rosuvastatin Calcium (Crestor) 10 mg PO HS [facility] Last Admin: 06/07/17 21:33 Dose: 10 mg - Labs Labs: 06/07/17 10:22 06/07/17 10:22 - Additional Findings Additional findings: - Constitutional Appears: Non-toxic, No Acute Distress - Head Exam Head Exam: ATRAUMATIC, NORMAL INSPECTION, NORMOCEPHALIC - Eye Exam Eye Exam: EOMI - ENT Exam ENT Exam: Mucous Membranes Moist - Neck Exam Neck Exam: Full ROM, Normal Inspection - Respiratory Exam Respiratory Exam: NORMAL BREATHING PATTERN. absent: Respiratory Distress - Cardiovascular Exam Cardiovascular Exam: REGULAR RHYTHM, +S1, +S2 - GI/Abdominal Exam GI & Abdominal Exam: Soft, Normal Bowel Sounds. absent: Tenderness - Extremities Exam Extremities Exam: Full ROM - Back Exam Back Exam: NORMAL INSPECTION - Neurological Exam Neurological Exam: Alert, Awake, Oriented x3 - Psychiatric Exam Psychiatric exam: Normal Affect, Normal Mood - Skin Skin Exam: Dry, Intact, Normal Color, Warm Assessment and Plan - Assessment and Plan (Free Text) Assessment: This is a 76 yo female with past medical hx ESRD, CKD requiring dialysis, DM, HTN presenting in acute on chronic renal failure 1. CKD/ESRD 06/08: Dialysis scheduled for tomorrow. -norvasc 10 -dialysis as scheduled -awaiting chair placement -pentoxil 400 bid 2. HTN 06/08: BP 149/62, stable. -asa 81 daily -plavix 75 daily -crestor 10 daily -losartan 50 daily -coreg bid 3. Hyperlipidemia -plavix 75 daily -crestor 10 daily 4. hx of DM 06/08: Glucose 323 today. Increased ISS to high dose. -ISS -accuchecks 5. Anemia 06/08: Hgb 8.3, stable. 6. GI/DVT ppx -heparin 5000 q 12 sc -protonix daily -SCDs Case discussed with attending. All medical management as per Dr. Pascual Cobb
[2017-06-08 11:30] LABS: BASO # 0.1 K/uL (0.0-0.2); BASO % 0.9 % (0.0-2.0); EOS # 0.1 K/uL (0.0-0.7); EOS % 2.1 % (0.0-4.0); HEMATOCRIT 25.7 % (34.0-47.0); LYMPH % 15.6 % (20.0-40.0); MEAN CELL VOLUME 80.8 fL (81.0-99.0); MEAN CORPUSCULAR HEMOGLOBIN 26.2 pg (27.0-31.0); MEAN CORPUSCULAR HGB CONC 32.4 g/dL (33.0-37.0); MEAN PLATELET VOLUME 7.9 fL (7.2-11.7); MONO # 0.5 K/uL (0.0-0.8); MONO % 8.7 % (0.0-10.0); RED CELL DISTRIBUTION WIDTH 13.9 % (11.5-14.5); WHITE BLOOD COUNT 6.1 K/uL (4.8-10.8)
--- NOTE | 2017-06-08 11:34 | CP.PCM.PN ---
Subjective - Date & Time of Evaluation Date of Evaluation: 06/08/17 Time of Evaluation: 08:40 - Subjective Subjective: clinically same Objective - Vital Signs/Intake and Output Vital Signs (last 24 hours): Temp Pulse Resp BP Pulse Ox 97.6 F 90 20 149/62 99 06/08/17 10:26 06/08/17 10:26 06/08/17 10:26 06/08/17 10:26 06/08/17 10:26 Intake and Output: 06/08/17 06/08/17 06:59 18:59 Intake Total 500 120 Balance 500 120 - Medications Medications: Current Medications Amlodipine Besylate (Norvasc) 10 mg PO DAILY [facility] Last Admin: 06/08/17 09:27 Dose: 10 mg Aspirin (Ecotrin) 81 mg PO DAILY [facility] Last Admin: 06/08/17 09:27 Dose: 81 mg Carvedilol (Coreg) 6.25 mg PO BID [facility] Last Admin: 06/08/17 09:27 Dose: 6.25 mg Clopidogrel Bisulfate (Plavix) 75 mg PO DAILY [facility] Last Admin: 06/08/17 09:27 Dose: 75 mg Heparin Sodium (Porcine) (Heparin) 5,000 units SC Q12 [facility] Last Admin: 06/08/17 09:34 Dose: Not Given Insulin Aspart (Novolog) 0 unit SC ACHS [facility] PRN Reason: Protocol Stop: 06/11/17 23:59 Last Admin: 06/08/17 07:58 Dose: Not Given Losartan Potassium (Cozaar) 50 mg PO DAILY [facility] Last Admin: 06/08/17 09:34 Dose: Not Given Pantoprazole Sodium (Protonix Ec Tab) 40 mg PO DAILY PRN PRN Reason: Dyspepsia Last Admin: 06/06/17 13:02 Dose: 40 mg Pentoxifylline (Pentoxil) 400 mg PO BID [facility] Last Admin: 06/08/17 09:28 Dose: 400 mg Rosuvastatin Calcium (Crestor) 10 mg PO HS [facility] Last Admin: 06/07/17 21:33 Dose: 10 mg - Labs Labs: 06/08/17 11:17 06/07/17 10:22 - Constitutional Appears: Well - Head Exam Head Exam: ATRAUMATIC, NORMAL INSPECTION, NORMOCEPHALIC - Eye Exam Eye Exam: EOMI, Normal appearance, PERRL Pupil Exam: NORMAL ACCOMODATION, PERRL - ENT Exam ENT Exam: Mucous Membranes Moist, Normal Exam - Neck Exam Neck Exam: Full ROM, Normal Inspection. absent: Lymphadenopathy - Respiratory Exam Respiratory Exam: Decreased Breath Sounds - Cardiovascular Exam Cardiovascular Exam: REGULAR RHYTHM, +S1, +S2 - GI/Abdominal Exam GI & Abdominal Exam: Soft, Diminished Bowel Sounds - Rectal Exam Rectal Exam: Deferred
[2017-06-08 11:57] LABS: POTASSIUM 4.3 mmol/L (3.6-5.2)
[2017-06-08 11:59] LABS: BILIRUBIN,TOTAL 0.4 mg/dL (0.2-1.3); TOTAL PROTEIN 6.6 g/dL (6.3-8.3)
[2017-06-08 12:00] LABS: CALCIUM 7.8 mg/dl (8.6-10.4); MAGNESIUM 1.9 mg/dL (1.6-2.3); PHOSPHOROUS 4.5 mg/dL (2.5-4.5)
[2017-06-09] MEDS: (Novolog) Insulin Aspart, Recombinant 100 u/ml 10 ml vial SC SCH ×4 (08:27→22:34)
[2017-06-09] MEDS ORDERED: Epoetin Alfa 10,000 unit/ml Dialysis IV SCH (12:00)
[2017-06-09] MEDS ORDERED: Paricalcitol 2 mcg/ml Inj IV SCH (12:00)
[2017-06-09] MEDS: Pantoprazole 40 mg EC Tab PO PRN (14:06)
--- NOTE | 2017-06-09 14:16 | CP.PCM.PN ---
Subjective - Date & Time of Evaluation Date of Evaluation: 06/09/17 Time of Evaluation: 09:20 - Subjective Subjective: clinically same Objective - Vital Signs/Intake and Output Vital Signs (last 24 hours): Temp Pulse Resp BP Pulse Ox 97.9 F 82 16 144/63 99 06/09/17 12:30 06/09/17 12:30 06/09/17 12:30 06/09/17 12:30 06/09/17 12:30 - Medications Medications: Current Medications Amlodipine Besylate (Norvasc) 10 mg PO DAILY [facility] Last Admin: 06/09/17 14:09 Dose: 10 mg Aspirin (Ecotrin) 81 mg PO DAILY [facility] Last Admin: 06/09/17 14:06 Dose: 81 mg Carvedilol (Coreg) 6.25 mg PO BID [facility] Last Admin: 06/09/17 14:06 Dose: 6.25 mg Clopidogrel Bisulfate (Plavix) 75 mg PO DAILY [facility] Last Admin: 06/09/17 14:06 Dose: 75 mg Epoetin Gurdeep (Procrit) 10,000 unit IV TTS [facility] Stop: 06/14/17 10:01 Last Admin: 06/09/17 12:08 Dose: 10,000 unit Heparin Sodium (Porcine) (Heparin) 5,000 units SC Q12 [facility] Last Admin: 06/09/17 09:07 Dose: Not Given Insulin Aspart (Novolog) 0 unit SC ACHS [facility] PRN Reason: Protocol Stop: 06/11/17 23:59 Last Admin: 06/09/17 13:42 Dose: Not Given Losartan Potassium (Cozaar) 50 mg PO DAILY [facility] Last Admin: 06/09/17 14:06 Dose: 50 mg Pantoprazole Sodium (Protonix Ec Tab) 40 mg PO DAILY PRN PRN Reason: Dyspepsia Last Admin: 06/09/17 14:06 Dose: 40 mg Paricalcitol (Zemplar) 4 mcg IV TTS [facility] Stop: 06/14/17 10:01 Last Admin: 06/09/17 12:08 Dose: 4 mcg Pentoxifylline (Pentoxil) 400 mg PO BID [facility] Last Admin: 06/09/17 14:07 Dose: 400 mg Rosuvastatin Calcium (Crestor) 10 mg PO HS [facility] Last Admin: 06/08/17 22:10 Dose: Not Given - Labs Labs: 06/08/17 11:17 09/01/17 11:17 - Constitutional Appears: Well - Head Exam Head Exam: ATRAUMATIC, NORMAL INSPECTION, NORMOCEPHALIC - Eye Exam Eye Exam: EOMI, Normal appearance, PERRL - ENT Exam ENT Exam: Mucous Membranes Moist, Normal Exam - Neck Exam Neck Exam: Full ROM, Normal Inspection. absent: Lymphadenopathy - Respiratory Exam Respiratory Exam: Decreased Breath Sounds - Cardiovascular Exam Cardiovascular Exam: REGULAR RHYTHM, +S1, +S2. absent: Murmur - GI/Abdominal Exam GI & Abdominal Exam: Diminished Bowel Sounds - Rectal Exam Rectal Exam: Deferred
[2017-06-09] MEDS ORDERED: Epoetin Alfa 10,000 unit/ml Dialysis SC ONE (19:42)
[2017-06-10 08:15] LABS: HEMATOCRIT 22.1 % (34.0-47.0); MEAN CELL VOLUME 80.7 fL (81.0-99.0); MEAN CORPUSCULAR HEMOGLOBIN 26.4 pg (27.0-31.0); MEAN CORPUSCULAR HGB CONC 32.8 g/dL (33.0-37.0); MEAN PLATELET VOLUME 8.1 fL (7.2-11.7); WHITE BLOOD COUNT 6.7 K/uL (4.8-10.8)
[2017-06-10] MEDS: (Novolog) Insulin Aspart, Recombinant 100 u/ml 10 ml vial SC SCH ×3 (08:39→17:23)
[2017-06-10 08:40] LABS: CALCIUM 7.9 mg/dl (8.6-10.4)
[2017-06-10] MEDS: Pantoprazole 40 mg EC Tab PO PRN (10:51)
[2017-06-10] MEDS ORDERED: Epoetin Alfa 10,000 unit/ml Dialysis SC ONE (12:00)
[2017-06-10] MEDS ORDERED: Ferric Sodium Gluconat Complex 62.5 mg/5 ml Vial IVPB ONE ×2 (12:00→15:00)
--- NOTE | 2017-06-10 13:54 | CP.PCM.PN ---
Subjective - Date & Time of Evaluation Date of Evaluation: 06/10/17 Time of Evaluation: 09:20 - Subjective Subjective: clinically same Objective - Vital Signs/Intake and Output Vital Signs (last 24 hours): Temp Pulse Resp BP Pulse Ox 98.9 F 74 20 162/69 H 97 06/10/17 08:07 06/10/17 08:07 06/10/17 08:07 06/10/17 08:07 06/10/17 08:07 Intake and Output: 06/10/17 06/10/17 06:59 18:59 Intake Total 120 Balance 120 - Medications Medications: Current Medications Amlodipine Besylate (Norvasc) 10 mg PO DAILY [facility] Last Admin: 06/09/17 14:09 Dose: 10 mg Aspirin (Ecotrin) 81 mg PO DAILY [facility] Last Admin: 06/10/17 10:51 Dose: 81 mg Carvedilol (Coreg) 6.25 mg PO BID [facility] Last Admin: 06/09/17 21:12 Dose: 6.25 mg Clopidogrel Bisulfate (Plavix) 75 mg PO DAILY [facility] Last Admin: 06/10/17 10:52 Dose: 75 mg Epoetin Gurdeep (Procrit) 10,000 unit IV TTS [facility] Stop: 06/14/17 10:01 Last Admin: 06/09/17 12:08 Dose: 10,000 unit Heparin Sodium (Porcine) (Heparin) 5,000 units SC Q12 [facility] Last Admin: 06/10/17 09:22 Dose: Not Given Insulin Aspart (Novolog) 0 unit SC ACHS [facility] PRN Reason: Protocol Stop: 06/11/17 23:59 Last Admin: 06/10/17 13:19 Dose: 6 unit Losartan Potassium (Cozaar) 50 mg PO DAILY [facility] Last Admin: 06/09/17 14:06 Dose: 50 mg Pantoprazole Sodium (Protonix Ec Tab) 40 mg PO DAILY PRN PRN Reason: Dyspepsia Last Admin: 06/10/17 10:51 Dose: 40 mg Paricalcitol (Zemplar) 4 mcg IV TTS [facility] Stop: 06/14/17 10:01 Last Admin: 06/09/17 12:08 Dose: 4 mcg Pentoxifylline (Pentoxil) 400 mg PO BID [facility] Last Admin: 06/10/17 10:51 Dose: 400 mg Rosuvastatin Calcium (Crestor) 10 mg PO HS [facility] Last Admin: 06/09/17 21:12 Dose: 10 mg - Labs Labs: 06/10/17 08:05 06/10/17 08:05 - Constitutional Appears: Well - Head Exam Head Exam: ATRAUMATIC, NORMAL INSPECTION, NORMOCEPHALIC - Eye Exam Eye Exam: EOMI, Normal appearance, PERRL - ENT Exam ENT Exam: Mucous Membranes Moist, Normal Exam - Neck Exam Neck Exam: Full ROM, Normal Inspection. absent: Lymphadenopathy - Respiratory Exam Respiratory Exam: Decreased Breath Sounds - Cardiovascular Exam Cardiovascular Exam: REGULAR RHYTHM, +S1, +S2. absent: Murmur - GI/Abdominal Exam GI & Abdominal Exam: Diminished Bowel Sounds - Rectal Exam Rectal Exam: Deferred Assessment and Plan (1) Hyperkalemia, diminished renal excretion Status: Acute (2) Renal failure Status: Acute (3) Chronic renal disease Status: Acute (4) Diabetes Status: Acute (5) Dizziness Status: Acute (6) Hypoglycemia Status: Acute (7) Medical assessment Status: Acute (8) Near syncope Status: Acute (9) Peripheral vascular disease Status: Acute (10) Vertigo Status: Acute
[2017-06-10 15:02] VITALS: RESP 16
[2017-06-10 17:11] VITALS: TEMP 98
[2017-06-10 18:09] VITALS: PULSE 79
[2017-06-10 18:14] VITALS: BP 188/85; O2SAT 98
[2017-06-10 19:41] LABS: HEMATOCRIT 30.9 % (34.0-47.0); MEAN CELL VOLUME 82.1 fL (81.0-99.0); MEAN CORPUSCULAR HEMOGLOBIN 27.3 pg (27.0-31.0); MEAN CORPUSCULAR HGB CONC 33.3 g/dL (33.0-37.0); MEAN PLATELET VOLUME 8.1 fL (7.2-11.7); RED CELL DISTRIBUTION WIDTH 14.2 % (11.5-14.5); WHITE BLOOD COUNT 7.3 K/uL (4.8-10.8)
== END 2017-06-10 20:59 | disposition home or self-care (01) | DRG 682 ==
LOC: C.ER 11:08 → C.9E 12:44 → C.5T 14:36 → C.3T 06-08 10:16
PROVIDERS: ADMIT Internal Medicine Nephrology; ATTEND Internal Medicine Nephrology
PROC: 5A1D60Z (ICD-10-PCS; principal; 2017-06-06)
DX: I12.0 Hypertensive chronic kidney disease with stage 5 chronic kidney disease or end stage renal disease (principal); N18.6 End stage renal disease; N17.9 Acute kidney failure, unspecified; E11.22 Type 2 diabetes mellitus with diabetic chronic kidney disease; E11.649 Type 2 diabetes mellitus with hypoglycemia without coma; E87.5 Hyperkalemia; E78.5 Hyperlipidemia, unspecified; Z99.2 Dependence on renal dialysis; Z79.4 Long term (current) use of insulin; D64.9 Anemia, unspecified; Z87.891 Personal history of nicotine dependence

== ENCOUNTER 2017-09-07 07:43 | Emergency (ER) | payer MEDICARE ==
[2017-09-07 07:44] VITALS: BMI 24.3
[2017-09-07 07:56] VITALS: TEMP 97.9; O2SAT 100
--- NOTE | 2017-09-07 09:16 | C.PDOC ---
Chief Complaint (Nursing): Lower Extremity Problem/Injury Past Medical History - Medical History PMH: Anemia, Diabetes, HTN, Hypercholesterolemia, Peripheral Edema (FEET), End Stage Renal Disease, Chronic Kidney Disease, TIA (MAYBE 1999) Family History: States: Unknown Family Hx - Social History Hx Tobacco Use: No Hx Alcohol Use: No Hx Substance Use: No - Immunization History Hx Tetanus Toxoid Vaccination: Yes Hx Influenza Vaccination: Yes Hx Pneumococcal Vaccination: Yes Vital Signs: Last Vital Signs Temp 97.9 F 09/07/17 07:51 Pulse 78 09/07/17 07:51 Resp 18 09/07/17 07:51 BP 164/77 H 09/07/17 07:51 Pulse Ox 100 09/07/17 09:19 - [facility] Procedures ANGIOPLASTY OF OTHER NON-CORONARY VESSEL(S) (12/21/14) ATHERECTOMY OF OTHER NON-CORONARY VESSEL(S) (12/21/14) INSEJ [id number] PERIPHERAL NON-CORONARY VES STENT(S) (12/21/14) INSERTION OF ONE VASCULAR STENT (12/21/14) PERFORMANCE OF URINARY FILTRATION, MULTIPLE (06/05/17) PROCEDURE ON SINGLE VESSEL (12/21/14) PROCEDURE ON VESSEL BIFURCATION (12/21/14) ED Course And Treatment O2 Sat by Pulse Oximetry: 100 Disposition - Disposition Disposition Time: 09:16 - Disposition Disposition: HOME/ ROUTINE Condition: STABLE Additional Instructions: Follow up with PMD and Turn Machine Operator within 1-2 days. Return to ED if feel worse. Prescriptions: Cane 1 each MC DAILY #1 each Meloxicam [Mobic] 7.5 mg PO BID #30 tab Instructions: [facility] (ED) Forms: [employer] (Maori) - Clinical Impression Clinical Impression: Foot pain
--- NOTE | 2017-09-07 09:29 | RAD ---
PROCEDURE: Right Foot Radiographs. HISTORY: atraumatic pain COMPARISON: None. FINDINGS: BONES: Normal. No fracture. JOINTS: Normal. SOFT TISSUES: Normal. OTHER FINDINGS: None. IMPRESSION: Normal right foot radiographs.
[2017-09-07 09:42] VITALS: BP 191/77; PULSE 70; RESP 16
--- NOTE | 2017-09-07 15:02 | C.PDOC ---
History Of Present Illness 76 year old female presents to ED for evaluation of right heel pain for the past 3 days. Notes that pain is worse with ambulation. Denies injury, trauma, change in sensation, or fever. Chief Complaint (Nursing): Lower Extremity Problem/Injury History Per: Patient History/Exam Limitations: no limitations Onset/Duration Of Symptoms: Days Current Symptoms Are (Timing): Still Present Recent travel outside of the [place]: No Additional History Per: Patient Past Medical History Reviewed: Historical Data, Nursing Documentation, Vital Signs Vital Signs: Last Vital Signs Temp 97.9 F 09/07/17 07:51 Pulse 70 09/07/17 09:40 Resp 16 09/07/17 09:40 BP 191/77 H 09/07/17 09:40 Pulse Ox 100 09/07/17 18:18 - Medical History PMH: Anemia, Diabetes, HTN, Hypercholesterolemia, Peripheral Edema (FEET), End Stage Renal Disease, Chronic Kidney Disease, TIA (MAYBE 1999) - [facility] Procedures ANGIOPLASTY OF OTHER NON-CORONARY VESSEL(S) (12/21/14) ATHERECTOMY OF OTHER NON-CORONARY VESSEL(S) (12/21/14) INSEJ [id number] PERIPHERAL NON-CORONARY VES STENT(S) (12/21/14) INSERTION OF ONE VASCULAR STENT (12/21/14) PERFORMANCE OF URINARY FILTRATION, MULTIPLE (06/05/17) PROCEDURE ON SINGLE VESSEL (12/21/14) PROCEDURE ON VESSEL BIFURCATION (12/21/14) Family History: States: Unknown Family Hx - Social History Hx Tobacco Use: No Hx Alcohol Use: No Hx Substance Use: No - Immunization History Hx Tetanus Toxoid Vaccination: Yes Hx Influenza Vaccination: Yes Hx Pneumococcal Vaccination: Yes Review Of Systems Except As Marked, All Systems Reviewed And Found Negative. Constitutional: Negative for: Fever, Chills Musculoskeletal: Positive for: Foot Pain (right heel) Skin: Negative for: Rash, Bruising Neurological: Negative for: Weakness, Numbness Physical Exam - Physical Exam Appears: Non-toxic, No Acute Distress Skin: Normal Color, Warm, Dry, No Other (no erythema to right foot) Head: Atraumatic, Normacephalic Eye(s): bilateral: Normal Inspection Oral Mucosa: Moist Extremity: Normal ROM (FROM of right foot), Tenderness (right posterior calcaneus), No Pedal Edema, Capillary Refill (<2 secs.), No Deformity, No Swelling Extremity: Bilateral: Atraumatic, Normal Color And Temperature, Normal ROM Pulses: Left Dorsalis Pedis: Normal, Right Dorsalis Pedis: Normal Neurological/Psych: Oriented x3, Normal Speech, Normal Motor, Normal Sensation ED Course And Treatment O2 Sat by Pulse Oximetry: 100 - Other Rad Right foot x-ray X-Ray: Interpreted by Me, Viewed By Me Interpretation: Calcaneal spur Progress Note: Right foot x-ray ordered and reviewed. Right foot was lee wrapped. Patient is being discharged home, and is instructed to follow up with podiatry as scheduled on 09/18/17. Disposition - Disposition Disposition: HOME/ ROUTINE Disposition Time: 09:18 Condition: STABLE Additional Instructions: Follow up with PMD and Application Support within 1-2 days. Return to ED if feel worse. Prescriptions: Cane 1 each MC DAILY #1 each Meloxicam [Mobic] 7.5 mg PO BID #30 tab Instructions: [place] (ED) Forms: [employer] (Romanian) - Clinical Impression Clinical Impression: Foot pain - PA / SPRING MACHINE OPERATOR / Resident Statement MD/DO has reviewed & agrees with the documentation as recorded. - Scribe Statement The provider has reviewed the documentation as recorded by the Scribe Curtis Cobb All medical record entries made by the Seibe were at my direction and personally dictated by me. I have reviewed the chart and agree that the record accurately reflects my personal performance of the history, physical exam, medical decision making, and the department course for this patient. I have also personally directed, reviewed, and agree with the discharge instructions and disposition.
== END 2017-09-07 09:42 | disposition home or self-care (01) ==
LOC: C.ER 07:43
DX: M79.671 Pain in right foot (principal); E78.00 Pure hypercholesterolemia, unspecified; I12.0 Hypertensive chronic kidney disease with stage 5 chronic kidney disease or end stage renal disease; N18.6 End stage renal disease

== ENCOUNTER 2018-12-19 07:41 | Outpatient (CLI) | payer MEDICARE | END 2018-12-19 07:42 | disposition home or self-care (01) | LOC: C.LAB 07:41 | DX: N18.6 End stage renal disease (principal); E11.9 Type 2 diabetes mellitus without complications; I10 Essential (primary) hypertension; E78.2 Mixed hyperlipidemia ==